=== PATIENT | male | born 1975 | race Caucasian/White ===

== ENCOUNTER 2023-03-25 10:48 | Emergency (ER) | payer MEDICARE, MEDICAID, SELFPAY ==
[2023-03-25 11:03] VITALS: BP 189/109; PULSE 89; RESP 18; TEMP 36.4; O2SAT 98
--- NOTE | 2023-03-25 14:00 | PC.NURSE ---
Pt called to get repeat vitals with no answer
== END 2023-03-25 14:00 | disposition left against medical advice (07) ==
LOC: ANHED 14:07
DX: I10 Essential (primary) hypertension (principal)
CPT/HCPCS: 99199

== ENCOUNTER 2023-09-20 11:13 | Emergency (ER) | payer MEDICARE, SELFPAY ==
[2023-09-20 11:51] VITALS: BP 135/85; PULSE 86; RESP 18; TEMP 36.6; O2SAT 98
[2023-09-20 11:57] LABS: Glucose Point of Care 290 mg/dl (65-105)
[2023-09-20 14:10] VITALS: BP 105/58; PULSE 96; RESP 18; O2SAT 100
[2023-09-20 14:25] LABS: Basophils Absolute Auto 0.1 K/mm3 (0.0-0.1); Eosinophils Absolute Auto 0.2 K/mm3 (0-0.3); Eosinophils Percent Auto 3.2 % (0-4.4); Hematocrit 43.3 % (42.0-52.0); Hemoglobin 14.6 g/dL (14.0-18.0); Immature Granulocyte Absolute 0.04 K/mm3 (0.00-0.031); Immature Granulocyte Percent A 0.6 % (0-0.5); Lymphocytes Percent Auto 27.7 % (18.3-44.2); Mean Corpuscular HGB Conc 33.7 g/dl (32-36); Mean Corpuscular Hemoglobin 28.2 pg (26-34); Mean Corpuscular Volume 83.6 fl (80-100); Mean Platelet Volume 10.8 fl (7.4-10.4); Monocytes Absolute Auto 0.6 K/mm3 (0.1-0.6); Monocytes Percent Auto 7.9 % (2.6-8.5); Neutrophils Absolute Auto 4.3 K/mm3 (1.3-6.7); Neutrophils Percent Auto 59.6 % (45.5-73.1); Platelet Count Result 190 k/mm3 (150-375); Red Blood Count 5.18 M/mm3 (4.6-6.20); Red Cell Distribution Width 12.2 % (11.5-14.5); White Blood Count 7.2 K/mm3 (4.5-10.0)
--- NOTE | 2023-09-20 14:29 | ED.RECABL ---
HPI - Recheck/Abnormal Lab/Rx General Chief Complaint: Recheck/Abnormal Lab/Rx Stated Complaint: hyperglycemia Time Seen by Provider: 09/20/23 14:22 History of Present Illness HPI narrative: Patient is a 48-year-old male with history of chronic pain, on opiates, sleep apnea, on nightly CPAP, type 2 diabetes here with multiple symptoms including increased fatigue, frequently falling asleep without realizing it, sweating, tiredness. He notes that these symptoms have been present for about 3 weeks. He went saw his primary care doctor couple weeks ago, described the symptoms and an A1c was repeated. It is typically well controlled however this time his A1c was 9.5 and he was started on Trulicity injections. The 1st dose of Trulicity was taken last week. He notes that today he drove into the hospital having difficulty keeping his eyes open, he works here. He notes that he fell asleep while he was at work and his coworkers had him brought to the emergency department for evaluation. He notes that his blood sugars have been running between 180 and high 200s and is having difficulty getting it any lower and believes this is likely the cause of his symptoms. He denies any cough, shortness of breath, chest pain, urinary symptoms, abdominal pain, diarrhea. No sick contacts. Related Data Allergies Allergy/AdvReac Type Severity Reaction Status Date / Time adhesive tape Allergy Rash Verified 09/20/23 11:14 Sulfa (Sulfonamide Allergy Rash Verified 09/20/23 11:14 Antibiotics) Review of Systems Review of Systems: All systems reviewed & are unremarkable except as noted in HPI and below Exam Narrative: GENERAL: Well-appearing, well-nourished, and in no acute distress. HEAD: Normocephalic, atraumatic. EYES: PERRLA and EOMI. Pupils 1-2 mm. ENT: Nares clear. Mucous membranes moist. NECK: Supple. CHEST: Clear to auscultation. No respiratory distress. HEART: Regular rate and rhythm. Normal peripheral pulses. ABDOMEN: Soft, nontender, nondistended. EXTREMITIES: Normal range of motion. No edema. SKIN: Warm, dry, no rash. NEURO: No focal deficits. no facial droop, no upper lower extremity drift, no sensory deficits of her face, upper extremities or lower extremities. Alert and oriented x3. PSYCH: Normal mood and affect. Course Course Emergency Course: Chart review performed, patient having elevated blood glucose is above 200, complaining of fatigue, sweats, fogginess. Triage vitals grossly normal. No prior visits here in our system. Patient seen evaluated, nontoxic appearing. he is awake, alert, oriented. 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 Initial lab work reviewed, no leukocytosis, electrolytes within normal limits aside from a glucose of 208, no anion gap, does not appear to be in DKA. UA negative for UTI. No focal neurological deficits, do not believe that brain imaging is warranted at this time given his complaints of diffuse fatigue and weakness. Will do EKG, anticipate discharge. Lab work imaging reviewed, grossly unremarkable. Patient is awake, alert, oriented ambulating around the department without difficulty. Discussed unremarkable workup here in the department, to contact his primary care doctor tomorrow for further outpatient testing. 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 The results of pertinent diagnostic studies and exam findings were discussed. The patient?s provisional diagnosis and plan of care were discussed with the patient and present family. The patient and/or present family expressed understanding of the diagnosis and plan. The nurse was instructed to provide written instructions and appropriate
[2023-09-20 14:32] LABS: Appearance Urine Clear (Clear); Bilirubin Urine Negative (Negative); Blood Urine Negative (Negative); Color Urine Yellow (Yellow); Glucose Urine UA 3+ mg/dL (Negative); Ketones Urine Trace mg/dL (Negative); Leukocyte Esterase Ur Negative LEU/UL (Negative); Nitrate Urine Negative (Negative); Protein Urine Negative (Negative); Specific Grav Ur 1.023 (1.001-1.035); Urobilinogen Urine 0.2 mg/dL (<2.0)
[2023-09-20 14:43] LABS: Alanine Aminotransferase 35 U/L (6-50); Albumin Level 4.6 g/dL (3.5-5.1); Alkaline Phosphatase 53 U/L (38-126); Anion Gap 10 mmol/L (4-12); Aspartate Amino Transferase 26 U/L (17-59); Bilirubin,Total 0.5 mg/dL (0.2-1.3); Blood Urea Nitrogen 20 mg/dL (9-20); Calcium 9.7 mg/dL (8.4-10.2); Carbon Dioxide 24 mmol/L (22-30); Chloride 102 mmol/L (98-107); Estimated CRCL calculation 102 ml/min; Estimated Glomerular Filt Rate > 60; Glucose 199 mg/dL (65-110); Magnesium 1.8 mg/dL (1.6-2.3); Phosphorus 3.8 mg/dL (2.5-4.5); Sodium 136 mmol/L (137-145)
[2023-09-20 14:43] LABS: Glucose Point of Care 208 mg/dl (65-105)
[2023-09-20 14:44] LABS: Add Urine Microscopic? NO
--- NOTE | 2023-09-20 15:06 | ECG_ITS ---
SEE SCANNED COPY FOR CONFIRMED REPORT MTDD
== END 2023-09-20 16:22 | disposition home or self-care (01) ==
PROVIDERS: Emergency Medicine; Emergency Provider Student in an Organized Health Care Education/Training Program
DX: R53.83 Other fatigue (principal); E11.9 Type 2 diabetes mellitus without complications; G47.30 Sleep apnea, unspecified; Z79.85 Long-term (current) use of injectable non-insulin antidiabetic drugs
CPT/HCPCS: 36415; 80053; 81003; 82010; 82948; 83735; 84100; 85025; 93005; 99283